=== PATIENT | male | born 1955 | race Caucasian/White ===

== ENCOUNTER 2020-04-24 06:51 | Day surgery (SDC) | payer BC, SELFPAY ==
[2020-04-24 07:10] VITALS: BP 143/80; PULSE 46; RESP 16; TEMP 36.6; O2SAT 99
[2020-04-24] MEDS: Lactated Ringers 1,000 ML 80 ML IV (07:38)
--- NOTE | 2020-04-24 08:40 | W.PM.HP.N ---
Date of service: 04/24/20 Time of Service: 08:40 Assessment and Plan Assessment and plan (1) Colon cancer screening: Status: Acute Assessment and plan: I advised colonoscopy. The procedure was described including the risks of perforation with need for surgery or bleeding. Prep instructions discussed. Patient agrees to proceed. History of Present Illness Narrative: 64 y/o male with history of HTN presents for screening colonoscopy. His last screening was in 2007, which was unremarkable. He denies a family history of colon cancer. He denies any changes in bowel habits including bloody or black tarry stools, abdominal pain, diarrhea or constipation. He denies constitutional symptoms. Denies use of marijuana or any other recreational or illegal drugs. He denies chest pain, palpitations, dyspnea or dyspnea with exertion. He reports being very active in his job, working at the [employer] facility in [place], [place]. He denies prior history or family history of adverse reactions or complications with anesthesia. Review of Systems All systems reviewed & are unremarkable except as noted in HPI and below PFSH Medical History (Updated 04/24/20 @ 08:41 by Lissette Womack MD) Diffuse spasm of esophagus (Acute) Disorder of anal region (Acute) Excessive thirst (Acute) Foot pain (Acute) Glaucoma (Chronic) Hyperlipidemia (Acute) Hyperplasia of prostate (Acute) Hypertensive disorder (Chronic) Increased frequency of urination (Acute) Low back pain (Acute) Obesity (Chronic) Umbilical hernia without obstruction and without gangrene (Acute) Surgical History (Updated 04/24/20 @ 07:26 by Gretel Marcus RN) H/O umbilical hernia repair (Acute ~09/27/14) History of colonoscopy (Chronic ~10/12/07) Hx of prostate biopsy (Acute) At [facility]. Status post bilateral foot surgery (Acute) Social History (Updated 12/23/19 @ 14:55 by PRISCILA Mirza) Smoking/Tobacco Use Status: Never Alcohol Intake: current Alcohol Intake frequency: a few times a week Alcohol type: beer Drug use: Never Substance use type: does not use Do you feel safe at home: Yes Do you feel safe in your relationship?: Yes Meds Home Medications and Allergies Home Medications Medication Instructions Recorded Confirmed Type acetaminophen 500 mg tablet 500 mg PO Q6H PRN 11/15/19 04/24/20 History aspirin 81 mg tablet,delayed 81 mg PO DAILY 11/15/19 04/24/20 History release atorvastatin 40 mg tablet 40 mg PO DAILY 11/15/19 04/24/20 History finasteride 5 mg tablet 5 mg PO DAILY 11/15/19 04/24/20 History lisinopril 20 mg tablet 20 mg PO DAILY 11/15/19 04/24/20 History tamsulosin 0.4 mg capsule 0.4 mg PO DAILY 11/15/19 04/24/20 History bisacodyl 5 mg tablet,delayed 5 mg PO ONCE #4 tab 12/23/19 04/24/20 Rx release polyethylene glycol 3350 17 238 g PO ONCE #238 gm 12/23/19 04/24/20 Rx gram/dose oral powder Allergies Allergy/AdvReac Type Severity Reaction Status Date / Time No Known Allergies Allergy Verified 04/24/20 07:23 Exam Narrative Exam Narrative: Alert Lungs CTA Heart RRR Abdomen soft, nontender Results Last Vital Signs Temp 97.9 F 04/24/20 07:10 Pulse 46 L 04/24/20 07:10 Resp 16 04/24/20 07:10 BP 143/80 H 04/24/20 07:10 Pulse Ox 99 04/24/20 07:10 COVID-19 Screening Have you,or household,traveled outside [place] in last 14 days?: No Had IN PERSON contact w/suspected or confirmed C-19 person: No
--- NOTE | 2020-04-24 08:48 | PDOC.DSDIS_ITS ---
Discharge Plan Disposition Patient Disposition: HOME Condition: Good Discharge Details Reason For Visit: Colonoscopy Attending Provider: Lissette Womakc Primary Care Provider: Mateusz Burns Home Meds and New Rx's Prescriptions: Continued aspirin [Adult Aspirin Regimen] 81 mg tablet,delayed release (DR/EC) 81 mg PO DAILY RF: 0 atorvastatin 40 mg tablet 40 mg PO DAILY RF: 0 finasteride 5 mg tablet 5 mg PO DAILY RF: 0 lisinopril 20 mg tablet 20 mg PO DAILY RF: 0 tamsulosin 0.4 mg capsule 0.4 mg PO DAILY RF: 0 acetaminophen [Tylenol Extra Strength] 500 mg tablet 500 mg PO Q6H PRNRF: 0 Discontinued polyethylene glycol 3350 17 gram/dose powder 238 g PO ONCE Qty: 238 RF: 0 bisacodyl [Dulcolax (bisacodyl)] 5 mg tablet,delayed release (DR/EC) 5 mg PO ONCE Qty: 4 RF: 0 Discharge Instructions Additional Instructions: Findings: Your colonoscopy showed minimal diverticulosis. Make sure to take in 30 grams of fiber daily. Your heart rate was noted to be slow. This can be normal, but if you develop shortness of breath with activity or chest pain please follow up with your primary care provider Follow up: Plan for a screening colonoscopy in 10 years or sooner if symptoms arise. Please call if you develop: fevers >101.5 Nausea or Vomiting Abdominal pain that is not transient DAY SURGERY UNIT POST COLONOSCOPY INSTRUCTIONS 1. Because there will be medication in your system for the next 24 hours, you may feel a little sleepy. Your coordination will be affected. Therefore: a. Do not drive or operate dangerous equipment for 24 hours. b. Do not drink alcohol beverages for 24 hours (not even beer). c. Plan to go home and rest for the day. 2. Generally there are no restrictions on your activity after a day or so has gone by, but you may feel a bit fatigued for a few days. 3 After you arrive home you may have a light meal and return to a normal diet as you can tolerate it without feeling sick to your stomach. 4. After surgery, you may feel pain or discomfort. This should be only t ransient, but if it persists please contact your doctor. 5. If there are any questions regarding the findings of your procedure, please feel free to contact your doctor. 6. If you are unable to contact your doctor with a problem, contact the hospital at [phone]. 0. Continue all your regular medications unless directed otherwise. I understand the above instructions and have no questions. Signature of Patient or Responsible Adult Escort Date/Time Name of Responsible Adult Escort Signature of Nurse Date/Time Activity:: Activity as Tolerated Diet:: As Tolerated Discharge Orders Discharge Orders: Discharge Order (Routine); Ordered 04/24/20 Ordered By: Lissette Womack DS: Diagnosis Discharge Diagnosis (1) Colon cancer screening: Status: Acute
--- NOTE | 2020-04-24 08:55 | W.COLOREPORT ---
Date of service: 04/24/20 Time of Service: 09:49 Colonoscopy Report Date of procedure: 04/24/20 Pre-op diagnosis general: Screening Post-op diagnosis procedure note: other (Minimal diverticulosis) Procedure: Colonoscopy Surgeon: Lissette Womack Anesthesia proc note operative: MAC Indications: This 64 year old man presents for routine colon screening. He is asymptomatic and has no FH colon cancer. His last colonoscopy was normal in 2007. Procedure Description: The patient was placed in the left Mur[place] position. Propofol was titrated to sedation. Digital rectal examination revealed no abnormalities. The scope was advanced to the cecum without difficulty. The ileocecal valve and appendiceal orifice were clearly identified. The prep was good. The scope was slowly withdrawn over the course of greater than 6 minutes with no abnormalities seen in the ascending, transverse, descending, sigmoid colon (with the exception of minimal diverticulosis) or rectum including on retroflexed view. The patient tolerated the procedure well and was stable to recovery. Plan for routine screening colonoscopy in 10 years or sooner if symptoms indicate.
[2020-04-24 10:09] VITALS: BP 132/85; RESP 17; TEMP 36.2; O2SAT 100
== END 2020-04-24 10:50 | disposition home or self-care (01) ==
PROVIDERS: PCP Family Medicine; Visit Provider Surgery
PROC: 0DJD8ZZ Inspection of Lower Intestinal Tract, Via Natural or Artificial Opening Endoscopic (ICD-10-PCS; CPT 45378; principal; 2020-04-24 09:00)
DX: Z12.11 Encounter for screening for malignant neoplasm of colon (principal); K57.30 Diverticulosis of large intestine without perforation or abscess without bleeding; I10 Essential (primary) hypertension
CPT/HCPCS: 45378; NC

== ENCOUNTER → 2024-03-30 09:16 | Outpatient (BNVA) | payer MEDICARE, BC, SELFPAY | PROVIDERS: PCP Family Medicine; Referring Provider Family Medicine; Visit Provider Podiatrist | DX: B07.0 Plantar wart (principal); M79.672 Pain in left foot; L84 Corns and callosities; Q82.8 Other specified congenital malformations of skin; M67.01 Short Achilles tendon (acquired), right ankle; M67.02 Short Achilles tendon (acquired), left ankle | CPT/HCPCS: 17110; 99204 ==